=== PATIENT | male | born 1980 | race Caucasian/White ===

== ENCOUNTER 2022-02-22 12:51 | Inpatient (IN) | payer MEDICAID, SELFPAY ==
[2022-02-22] VITALS (11 sets, daily range): BP systolic 124–152; BP diastolic 77–100; PULSE 57–88; RESP 16–30; TEMP 36.6–37.6; O2SAT 92–100; BMI 26.6; BMI 26.7
--- NOTE | 2022-02-22 | ECG_ITS ---
Test Reason : OVERDOSE Blood Pressure : / mmHG Vent. Rate : 070 BPM Atrial Rate : 070 BPM P-R Int : 136 ms QRS Dur : 088 ms QT Int : 380 ms P-R-T Axes : 006 066 047 degrees QTc Int : 410 ms Normal sinus rhythm Normal ECG No previous ECGs available Referred By: Otf Blackman Electronically Signed By:Ok Kelly
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
--- NOTE | 2022-02-22 13:12 | ED.GENADULT ---
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 Troponin I High Sens (<3.5-35.0) ng/L Total Protein (6.5-8.0) g/dL Albumin (3.5-5.0) g/dL Urine Color Urine Appearance Urine pH (5.0-8.0) Ur Specific [place] (1.005-1.025) Urine Protein (NEG-TRACE) MG/DL Urine Glucose (UA) (NEG) MG/DL Urine Ketones (NEG) MG/DL Urine Blood (NEG) Urine Nitrite (NEG) Ur Leukocyte Esterase (NEG) Salicylates (15-30) mg/dL Urine Opiates Screen (Not Detect) Urine Fentanyl Screen (Not Detect) Acetaminophen (<30) mcg/mL Ur Barbiturates Screen (Not Detect) Ur Phencyclidine Scrn (Not Detect) Ur Amphetamines Screen (Not Detect) U Benzodiazepines Scrn (Not Detect) Urine Cocaine Screen (Not Detect) U Marijuana (THC) Screen (Not Detect) Ethyl Alcohol mg/dL COVID-19 (SANDY) (Negative) COVID-19 Clin Com <Ten Kirby MD - Last Filed: 02/22/22 19:22> Critical Care Time Critical Care Time Critical Care Time: Yes <DOREEN Broussard - Last Filed: 02/22/22 17:58> Total Critical Care Time: 65 <DOREEN Broussard - Last Filed: 02/22/22 17:58> Attestation: I attest to this time spent taking care of the patient, obtaining history, physical, reviewing labs, imaging, speaking to my attending, speaking to specialist. <DOREEN Broussard - Last Filed: 02/22/22 17:58> Discharge Plan Discharge Clinical Impression: Drug overdose <DOREEN Broussard - Last Filed: 02/22/22 17:58> Patient Disposition: Admitted As Inpatient <DOREEN Broussard - Last Filed: 02/22/22 17:58>
[2022-02-22 13:40] LABS: MANUAL DIFF FLAG NO
[2022-02-22 13:44] LABS: Basophils Percent Auto 0.2 % (0-2); Eosinophils Percent Auto 0.1 % (0-4); Hematocrit 52.7 % (42.0-52.0); Hemoglobin 17.6 g/dl (14.0-18.0); Imm Gran Abs Auto 0.02 X10*3/uL (0.00-0.03); Imm Gran Pct Auto 0.2 % (0.0-0.4); Lymphocytes Absolute Auto 1.3 X10*3/uL (1.2-4.9); Lymphocytes Percent Auto 14.6 % (20-40); Mean Corpuscular HGB Conc 33.4 g/dl (31.0-36.0); Mean Corpuscular Hemoglobin 27.4 pg (27.0-33.0); Mean Corpuscular Volume 82.1 fL (80.0-98.0); Mean Platelet Volume 10.2 fL (9.4-12.4); Monocytes Absolute Auto 0.5 X10*3/uL (0.1-1.2); Monocytes Percent Auto 5.2 % (2-11); Neutrophils Absolute Auto 7.3 x10*3/uL (2.0-8.3); Neutrophils Percent Auto 79.7 % (45-73); Platelet Count 240 X10*3/uL (160-400); Red Blood Count 6.42 X10*6/uL (4.60-5.80); Red Cell Distribution Width 14.5 % (11.0-16.0); White Blood Count 9.1 X10*3/uL (4.8-10.8)
[2022-02-22 13:46] LABS: Appearance Urine CLEAR; Color Urine YELLOW; Glucose Urine UA NEG (NEG); Leukocyte Esterase Urine NEG (NEG); Nitrite Urine NEG (NEG); Urine Blood NEG (NEG); Urine Ketones 15 MG/DL (NEG); Urine Protein NEG (NEG-TRACE)
[2022-02-22 13:56] LABS: Ethanol < 10 mg/dL
--- NOTE | 2022-02-22 13:57 | PC.NURSE ---
call placed to poison control: if pt awake and alert give PO [place]. Otherwise, EKG q2 hr x3 tylenol and salicilyte levels, fluids as needed for hypertension. seizure precautions
[2022-02-22 14:00] LABS: COVID-19 Test Negative (Negative); IDNOW Serial# 55D5AD1C
[2022-02-22 14:01] LABS: Troponin-I High Sensitivity 3.6 ng/L (<3.5-35.0)
[2022-02-22 14:04] LABS: Amphetamine Screen Urine Not Detected (Not Detect); Barbiturates, Urine Not Detected (Not Detect); Benzodiazepines Screen Urine Not Detected (Not Detect); Cannabinoid Screen Urine Not Detected (Not Detect); Cocaine Screen Urine POSITIVE (Not Detect); Fentanyl, urine POSITIVE (Not Detect); Opiate Screen Urine Not Detected (Not Detect); Phencyclidine Screen Urine Not Detected (Not Detect)
[2022-02-22 14:31] LABS: Alanine Aminotransferase 20 U/L (0-40); Alkaline Phosphatase 61 U/L (39-117); Anion Gap 16 (12-20); Aspartate Amino Transferase 28 U/L (5-37); Bilirubin Total 1.2 mg/dL (0.0-1.0); Blood Urea Nitrogen 11 mg/dL (9-16); Calcium 9.5 mg/dL (8.4-10.2); Carbon Dioxide 20 mmol/L (22-29); Chloride 105 mmol/L (96-108); Creatinine Clr Calc Pharmacy 99.9; Estimated Glomerular Filt Rate > 60; Glucose Random 95 mg/dL (60-115); Magnesium 1.8 mg/dL (1.6-2.6); Potassium 4.2 mmol/L (3.3-5.1); Sodium 137 mmol/L (135-145); Total Protein 7.6 g/dL (6.5-8.0)
[2022-02-22 14:38] LABS: Acetaminophen LAB < 1 mcg/mL (<30); Salicylate < 5.0 mg/dL (15-30)
[2022-02-22] MEDS: Activated charcoaL 50 GM/240 ML ORAL.SUSP PO (15:35)
--- NOTE | 2022-02-22 15:39 | PC.NURSE ---
pt more alert, able to tolerate taking P charcoal at this time
--- NOTE | 2022-02-22 16:00 | ECG_ITS ---
Test Reason : cp Blood Pressure : / mmHG Vent. Rate : 058 BPM Atrial Rate : 058 BPM P-R Int : 136 ms QRS Dur : 108 ms QT Int : 394 ms P-R-T Axes : -29 070 040 degrees QTc Int : 386 ms Sinus bradycardia Otherwise normal ECG When compared with ECG of 22-FEB-2022 20:09, No significant change was found Referred By: Theresa Mcgill Electronically Signed By:STANISLAW JIANG MD
--- NOTE | 2022-02-22 16:15 | ECG_ITS ---
Test Reason : REPEAT Blood Pressure : / mmHG Vent. Rate : 060 BPM Atrial Rate : 060 BPM P-R Int : 144 ms QRS Dur : 102 ms QT Int : 392 ms P-R-T Axes : 002 065 046 degrees QTc Int : 392 ms Normal sinus rhythm with sinus arrhythmia Normal ECG When compared with ECG of 22-FEB-2022 20:02, Previous ECG had limb leads reversal Referred By: Otf Blackman Electronically Signed By:Ok Kelly
[2022-02-22 16:42] LABS: Lactic Acid 1.6 mmol/L (0.5-2.0)
[2022-02-22] MEDS: ondansetron HCL 4 MG/2 ML VIAL IVPUSH ×2 (16:48→23:01)
[2022-02-22] MEDS: Naloxone HCl 0.4 MG/ML VIAL IVPUSH ×2 (16:49→18:02)
--- NOTE | 2022-02-22 17:03 | PC.NURSE ---
pt vomited following charcoal administration
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
--- NOTE | 2022-02-22 17:56 | PC.NURSE ---
pt refused placement of NG tube. explained risks. Paz LOGAN at bedside, educated pt, he continues to refuse. pt falling asleep. Narcan ordered.
--- NOTE | 2022-02-22 18:00 | ECG_ITS ---
Test Reason : OVERDOSED Blood Pressure : / mmHG Vent. Rate : 078 BPM Atrial Rate : 078 BPM P-R Int : 144 ms QRS Dur : 084 ms QT Int : 366 ms P-R-T Axes : 061 040 039 degrees QTc Int : 417 ms Normal sinus rhythm Normal ECG When compared with ECG of 22-FEB-2022 13:17, No significant change was found Referred By: Otf Blackman Electronically Signed By:Ok Kelly
--- NOTE | 2022-02-22 18:10 | PC.NURSE ---
pt reports he takes no home meds. that he was taking suboxone but he stopped, all I take is heroin
--- NOTE | 2022-02-22 18:14 | PHA.MEDREC ---
Pharmacy Consult ? Medication Reconciliation Pharmacy has completed the medication reconciliation. Pt stated that he is taking Suboxone 8/2mg films once daily, and last took it a few days ago. PDMP history shows that pt has not picked up a prescription for these since April 2021. Cynthia Hardy, PharmD
[2022-02-22 18:34] LABS: Lactic Acid 1.5 mmol/L (0.5-2.0)
[2022-02-22] MEDS: Naloxone HCl 2 MG/2 ML SYRINGE 1 MG IVPUSH (19:32)
[2022-02-22] MEDS: Naloxone HCl 5 MG in Dextrose 5 % 95 ML 20 MG IV (19:34)
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
--- NOTE | 2022-02-22 20:00 | ECG_ITS ---
Test Reason : REPEAT Blood Pressure : / mmHG Vent. Rate : 062 BPM Atrial Rate : 062 BPM P-R Int : 126 ms QRS Dur : 086 ms QT Int : 384 ms P-R-T Axes : 213 127 151 degrees QTc Int : 389 ms Limb leads reversal Unusual P axis, possible ectopic atrial rhythm Right axis deviation Nonspecific ST and T wave abnormality Abnormal ECG When compared with ECG of 22-FEB-2022 17:57, Ectopic atrial rhythm has replaced Sinus rhythm QRS axis Shifted right Referred By: Otf Blackman Electronically Signed By:Ok Kelly
[2022-02-22 20:17] LABS: Lactic Acid 1.2 mmol/L (0.5-2.0)
[2022-02-22] MEDS: Heparin Sodium,Porcine 5,000 UNIT/ML VIAL 5000 UNIT SUBCUT (21:51)
[2022-02-22] MEDS: Naloxone HCl 5 MG in Dextrose 5 % 95 ML 16 MG IV (23:26)
[2022-02-23] VITALS (24 sets, daily range): BP systolic 127–160; BP diastolic 52–117; PULSE 54–90; RESP 12–68; TEMP 36.1–37.8; O2SAT 91–99; BMI 24.9
--- NOTE | 2022-02-23 | ECG_ITS ---
Test Reason : tru Blood Pressure : / mmHG Vent. Rate : 068 BPM Atrial Rate : 068 BPM P-R Int : 124 ms QRS Dur : 110 ms QT Int : 412 ms P-R-T Axes : 046 062 052 degrees QTc Int : 438 ms Normal sinus rhythm Normal ECG When compared with ECG of 22-FEB-2022 23:09, QT has lengthened Referred By: Theresa Mcgill Electronically Signed By:STANISLAW JIANG MD
[2022-02-23 01:04] LABS: OBS Int Ctl Valid YES; OBS1 NEGATIVE (NEGATIVE)
[2022-02-23] MEDS: Naloxone HCl 5 MG in Dextrose 5 % 95 ML 20 MG IV (03:50)
[2022-02-23 05:25] LABS: VBG Base Excess -1.2 mmol/L; VBG HCO3 21 mmol/L (22-26); VBG pCO2 32 mmHg; VBG pH 7.43 (7.32-7.43); VBG pO2 35 mmHg
[2022-02-23 05:33] LABS: Neutrophils Absolute Auto 11.2 x10*3/uL (2.0-8.3); PLT ABN DIST 1; PLT CLUMP 1; SCAN SMEAR FLAG 1
[2022-02-23 05:35] LABS: Basophils Percent Auto 0.2 % (0-2); Hematocrit 56.2 % (42.0-52.0); Hemoglobin 18.4 g/dl (14.0-18.0); Imm Gran Abs Auto 0.04 X10*3/uL (0.00-0.03); Imm Gran Pct Auto 0.3 % (0.0-0.4); Lymphocytes Absolute Auto 0.9 X10*3/uL (1.2-4.9); Lymphocytes Percent Auto 7.5 % (20-40); Mean Corpuscular HGB Conc 32.7 g/dl (31.0-36.0); Mean Corpuscular Hemoglobin 27.1 pg (27.0-33.0); Mean Corpuscular Volume 82.6 fL (80.0-98.0); Mean Platelet Volume 11.6 fL (9.4-12.4); Monocytes Absolute Auto 0.3 X10*3/uL (0.1-1.2); Monocytes Percent Auto 2.6 % (2-11); Neutrophils Percent Auto 89.4 % (45-73); Red Cell Distribution Width 15.9 % (11.0-16.0)
[2022-02-23 05:37] LABS: White Blood Count 12.5 X10*3/uL (4.8-10.8)
[2022-02-23 05:38] LABS: MANUAL DIFF FLAG NO
[2022-02-23] MEDS: ondansetron HCL 4 MG/2 ML VIAL IVPUSH ×2 (06:11→22:24)
[2022-02-23] MEDS: Lactated Ringers 1,000 ML 999 ML IV (06:12)
[2022-02-23 06:33] LABS: Alanine Aminotransferase 21 U/L (0-40); Albumin Level 4.5 g/dL (3.5-5.0); Alkaline Phosphatase 65 U/L (39-117); Anion Gap 20 (12-20); Aspartate Amino Transferase 27 U/L (5-37); Bilirubin Total 0.8 mg/dL (0.0-1.0); Blood Urea Nitrogen 16 mg/dL (9-16); Calcium 10.2 mg/dL (8.4-10.2); Carbon Dioxide 18 mmol/L (22-29); Chloride 103 mmol/L (96-108); Creatinine Clr Calc Pharmacy 83.4; Estimated Glomerular Filt Rate 60; Glucose Random 106 mg/dL (60-115); Magnesium 1.9 mg/dL (1.6-2.6); Potassium 3.9 mmol/L (3.3-5.1); Sodium 137 mmol/L (135-145); Total Protein 8.9 g/dL (6.5-8.0)
[2022-02-23] MEDS: Heparin Sodium,Porcine 5,000 UNIT/ML VIAL 5000 UNIT SUBCUT ×3 (07:39→19:55)
[2022-02-23] MEDS: Lactated Ringers 1,000 ML 250 ML IVCONT ×4 (07:40→19:55)
[2022-02-23] MEDS: Naloxone HCl 5 MG in Dextrose 5 % 95 ML 10 MG IV ×2 (09:03→22:24)
[2022-02-23 09:21] LABS: Venous Blood Gas Refer to POC result
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
--- NOTE | 2022-02-23 10:10 | PC.NURSE ---
Pharmacy needed to change order for Narcan gtt, to finish this bag and start new bag after.
[2022-02-23 12:30] LABS: Anion Gap 15 (12-20); Blood Urea Nitrogen 17 mg/dL (9-16); Calcium 9.7 mg/dL (8.4-10.2); Carbon Dioxide 21 mmol/L (22-29); Chloride 104 mmol/L (96-108); Creatinine Clr Calc Pharmacy 100.8; Estimated Glomerular Filt Rate > 60; Glucose Random 108 mg/dL (60-115); Potassium 3.8 mmol/L (3.3-5.1); Sodium 136 mmol/L (135-145)
[2022-02-24] VITALS (14 sets, daily range): BP systolic 133–149; BP diastolic 79–103; PULSE 59–79; RESP 14–29; TEMP 37.2–37.4; O2SAT 92–95; BMI 27.4
[2022-02-24] MEDS: Lactated Ringers 1,000 ML 250 ML IVCONT ×3 (00:06→08:23)
[2022-02-24 05:26] LABS: VBG Base Excess 3.7 mmol/L; VBG HCO3 26 mmol/L (22-26); VBG pCO2 35 mmHg; VBG pH 7.48 (7.32-7.43); VBG pO2 71 mmHg
[2022-02-24 05:28] LABS: Basophils Percent Auto 0.3 % (0-2); Hemoglobin 16.2 g/dl (14.0-18.0); Imm Gran Abs Auto 0.03 X10*3/uL (0.00-0.03); Imm Gran Pct Auto 0.3 % (0.0-0.4); Lymphocytes Absolute Auto 1.8 X10*3/uL (1.2-4.9); Lymphocytes Percent Auto 17.5 % (20-40); MANUAL DIFF FLAG NO; Mean Corpuscular HGB Conc 33.8 g/dl (31.0-36.0); Mean Corpuscular Hemoglobin 27.6 pg (27.0-33.0); Mean Corpuscular Volume 81.6 fL (80.0-98.0); Mean Platelet Volume 10.6 fL (9.4-12.4); Monocytes Absolute Auto 0.8 X10*3/uL (0.1-1.2); Monocytes Percent Auto 8.2 % (2-11); Neutrophils Absolute Auto 7.5 x10*3/uL (2.0-8.3); Neutrophils Percent Auto 73.7 % (45-73); Platelet Count 215 X10*3/uL (160-400); Red Blood Count 5.88 X10*6/uL (4.60-5.80); Red Cell Distribution Width 14.4 % (11.0-16.0); White Blood Count 10.1 X10*3/uL (4.8-10.8)
[2022-02-24 05:53] LABS: Alanine Aminotransferase 14 U/L (0-40); Albumin Level 3.4 g/dL (3.5-5.0); Alkaline Phosphatase 47 U/L (39-117); Anion Gap 12 (12-20); Aspartate Amino Transferase 14 U/L (5-37); Bilirubin Total 0.9 mg/dL (0.0-1.0); Blood Urea Nitrogen 18 mg/dL (9-16); Carbon Dioxide 25 mmol/L (22-29); Chloride 105 mmol/L (96-108); Creatinine Clr Calc Pharmacy 91.7; Estimated Glomerular Filt Rate > 60; Glucose Random 109 mg/dL (60-115); Magnesium 1.6 mg/dL (1.6-2.6); Phosphorus 2.6 mg/dL (2.7-4.5); Potassium 3.7 mmol/L (3.3-5.1); Sodium 138 mmol/L (135-145); Total Protein 6.5 g/dL (6.5-8.0)
--- NOTE | 2022-02-24 06:07 | PC.NURSE ---
mild nausea with one episode of emesis overnight, no complaints at this time. zofran with good effect., Minimal PO intake. voiding ample amounts of urine in urinal. No trouble breathing. VSS>
[2022-02-24] MEDS: Acetaminophen 325 MG TABLET 650 MG PO ×3 (06:15→18:21)
[2022-02-24 06:37] LABS: Venous Blood Gas Refer to POC result
[2022-02-24] MEDS: Potassium Phosphate/NS 15 MMOL/250 ML PLAST..BAG 62.5 MMOL IV (07:41)
[2022-02-24] MEDS: Magnesium Sulfate/D5W 1 GM/100 ML PIGGYBACK IV (07:41)
[2022-02-24] MEDS: Heparin Sodium,Porcine 5,000 UNIT/ML VIAL 5000 UNIT SUBCUT (07:42)
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
--- NOTE | 2022-02-24 10:14 | PM.EVENT ---
Event Note Date of Service: 02/24/22 Event Note: Transfer from ICU. Discussed with ICU attending. Admitted for narcan drip. Off drip as off 0300. will need another day of IV fluids and likely dc tomorrow.
[2022-02-24] MEDS: Potassium Chloride ER 20 MEQ TAB.ER.PRT PO ×2 (11:02→20:47)
[2022-02-24] MEDS: Lactated Ringers 1,000 ML 100 ML IVCONT ×2 (11:06→20:47)
--- NOTE | 2022-02-24 15:37 | MHC.CM.PN ---
Addendum entered by Yolie Merida 02/25/22 09:42: Per [facility] clinic, pt has not received Suboxone since 04/2021 and is no longer in their program. Information given to RN Original Note: Met with pt who is under [place] [employer] supervision while INPT. Pt will be released into [employer] custody when medically stable. Pt states he was independent prior to admission with no services or care needs. Pt states he was receiving Suboxone at the [facility] clinic on [facility] but hasn't received any tx in over a month. No COVID vax and PCP is not known but pt states he had received care from the [facility] provider office in the distant past. Call placed to clinic to inquire on dosing. Awaiting response at this time: No further CM needs
[2022-02-25] MEDS: Acetaminophen 325 MG TABLET 650 MG PO ×2 (00:27→07:18)
[2022-02-25] MEDS: ondansetron HCL 4 MG/2 ML VIAL IVPUSH (03:22)
[2022-02-25 07:04] VITALS: BP 152/89; PULSE 75; RESP 18; TEMP 35.8; O2SAT 93
--- NOTE | 2022-02-25 10:08 | HO.PM.IMPN ---
Subjective Subjective Date of Service: 02/25/22 Review of Systems Follow up ICU transfer, overdose feeling tired and weak today requesting suboxone Physical Exam Vital Signs: Vital Signs: Last Vital Signs Temp 96.5 F L 02/25/22 07:04 Pulse 75 02/25/22 07:04 Resp 18 02/25/22 07:04 BP 152/89 H 02/25/22 07:04 Pulse Ox 93 02/25/22 07:04 BMI result Body Mass Index 27.4 Appearing in no acute distress lung sounds are clear to auscultation heart regular rate rhythm, clear S1, S2 positive bowel sounds, abdomen is soft, nontender neuro patient is alert x3, no focal deficits Objective Data Active Medications Acetaminophen (Acetaminophen 325 Mg Tablet) 650 mg PO Q6H PRN PRN Reason: Pain, Moderate (Pain Scale 4-6 Last Admin: 02/25/22 07:18 Dose: 650 mg Documented by: IGOR Ondansetron HCl (Ondansetron Hcl 4 Mg/2 Ml Vial) 4 mg IVPUSH Q6H PRN PRN Reason: Nausea Last Admin: 02/25/22 03:22 Dose: 4 mg Documented by: OPAL Pharmacy Consult (Consult Rx Perform Med Rec) 1 each MISCELLANE ONCE PRN PRN Reason: Consult order Labs CBC & Chem 7: 02/24/22 05:22 02/24/22 05:22 Assessment and Plan (1) Toxic encephalopathy: Status: Acute Plan 42 year old man admitted to the ICU for intentional overdose after case well as 3 packs of crack and 2 packs of heroin just prior to being arrested by the police. He was brought to the emergency department in police custody with diffuse abdominal pain. In the ICU he required multiple doses Narcan was started on a Narcan drip. Intentional overdose Treated with Narcan drip in the ICU No initiation of activated charcoal Did not require intubation Narcan drip discontinued and patient transferred to [facility] Stable vital signs and labs, not requiring supplemental oxygen Still feeling weak and tired, continue to monitor Opiate use disorder Intentional overdose Addiction medicine consultation for Suboxone initiation DVT prophylaxis with early ambulation Attending Dr. Cortez Full code Patient requires continued hospitalization For monitoring of mild lethargy from intentional overdose and initiation of Suboxone Quality Stroke Does the patient have a stroke diagnosis?: No VTE Prior VTE?: No VTE Risk Level:: Medical - moderate - high VTE Device Contraindication: Treatment Not Indicated VTE Drug Contraindication: N/A - Med Ordered
[2022-02-25] MEDS: Buprenorphine/Naloxone 8/2 mg FILM 1 FILM SUBLINGUAL ×2 (10:43→14:41)
[2022-02-25 11:09] VITALS: BP 143/82; PULSE 72; RESP 18; TEMP 35.5; O2SAT 94
--- NOTE | 2022-02-25 11:43 | MHC.RECOVRN ---
Met with pt in 462 after Suboxone intiation. Pt states I feel better than I did before but I need more. I usually get 24 mg. Pt appears restless and is experiencing rhinorrea. Pt reports using heroin, 2 bundles daily, IN, x 6 months as well as cocaine, 2 grams daily, IN, x 6 months. Prior to that, pt reports being in recovery x 1 year utilizing Suboxone and working. Per [facility], pts last Suboxone script was 06/05/21 for 12/3 mg, 2 films daily. Pt reports hx one overdose requiring Narcan about a year ago. Pt reports ATS admissions, denies other [facility] tx. Pt has not tried other medications for OUD. Pt looking to increase and continue Suboxone. Discussed with Marisol Castillo APRN.
--- NOTE | 2022-02-25 11:52 | HO.SUDE ---
Please see Recovery Support and Addiction Medicine notes.
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
[2022-02-25 16:00] VITALS: BP 120/74; PULSE 87; RESP 18; TEMP 36.5; O2SAT 98
[2022-02-25 19:16] VITALS: BP 139/77; PULSE 68; RESP 18; TEMP 37.1; O2SAT 95
[2022-02-25 23:13] VITALS: BP 139/82; PULSE 63; RESP 18; TEMP 36.8; O2SAT 97
[2022-02-26 03:26] VITALS: BP 131/89; PULSE 66; RESP 18; TEMP 36.4; O2SAT 98
[2022-02-26 07:20] VITALS: BP 124/81; PULSE 66; RESP 18; TEMP 36.3; O2SAT 98
[2022-02-26] MEDS: Buprenorphine/Naloxone 12/3 mg FILM 1 FILM SUBLINGUAL ×2 (08:17→14:00)
[2022-02-26] MEDS: Albuterol/Iprat 2.5/0.5MG 3 ML AMPUL.NEB INHALE (10:02)
[2022-02-26 10:05] VITALS: PULSE 66; RESP 18; O2SAT 98
[2022-02-26] MEDS: predniSONE 10 MG TABLET 50 MG PO (10:15)
[2022-02-26 11:03] VITALS: BP 123/72; PULSE 79; RESP 18; TEMP 36.9; O2SAT 97
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
--- NOTE | 2022-02-26 11:46 | MHC.CM.PN ---
PT MEDICALLY CLEARED FOR D/C TODAY, PT WILL D/C TO POLICE CUSTODY, OFFICER AT BEDSIDE, PT WILL RECEIVE 2ND DOSE OF SUBOXONE PRIOR TO D/C AND WILL NEED PAPER SCRIPTS.
== END 2022-02-26 16:45 | disposition other institution (70) | DRG 816 ==
LOC: HO.ED 19:11 → HO.EDOVER 19:36 → HO.ICU 19:45 → HO.IMC 02-24 18:28
PROVIDERS: Internal Medicine Pulmonary Disease; Physician Assistant; Admitting Provider Registered Nurse Community Health; Emergency Provider Emergency Medicine Emergency Medical Services; Visit Provider Hospitalist
DX: T40.1X1A Poisoning by heroin, accidental (unintentional), initial encounter (principal); J96.01 Acute respiratory failure with hypoxia; G92.8 Other toxic encephalopathy; N17.9 Acute kidney failure, unspecified; E86.0 Dehydration; F11.20 Opioid dependence, uncomplicated; T40.5X1A Poisoning by cocaine, accidental (unintentional), initial encounter; Z20.822 Contact with and (suspected) exposure to COVID-19; Z79.899 Other long term (current) drug therapy
CPT/HCPCS: 36415; 74176; 80048; 80053; 80143; 80179; 80307; 81003; 82077; 82272; 82803; 83605; 83735; 84100; 84484; 85025; 87635; 93005; 94640; 96365; 96375; 96376; 99285; 99291; J2405; J3475